=== PATIENT | female | born 1985 | race Caucasian/White ===

== ENCOUNTER → 2022-08-22 08:18 | Outpatient (CLI) | payer OTHER, SELFPAY ==
--- NOTE | ~2022-08-22 | US_ITS ---
EXAMINATION: US abdomen complete DATE: 08/22/2022 08:41 INDICATION: Abdominal pain. TECHNIQUE: Multiple grayscale and Doppler ultrasound images of the abdomen were obtained. COMPARISON: None FINDINGS: The visualized portions of the head and body of the pancreas are normal. The liver is abdias l without focal lesion. No liver surface nodularity. There is normal flow in main portal vein. The ga llbladder is normal in size and contains a large gallstone. No gallbladder wall thickening or sonogra phic Kc sign. The common duct is normal and measures 3 mm. The kidneys are normal in size. The sp juan is normal in size. The inferior vena cava is normal. Abdominal aorta is normal in caliber. IMPRESSION: 1. Cholelithiasis. No evidence of acute cholecystitis. Reviewed, dictated and finalized at location A. [employer]
== END ==
PROVIDERS: PCP Internal Medicine; Visit Provider Internal Medicine
DX: R10.9 Unspecified abdominal pain (principal); K80.20 Calculus of gallbladder without cholecystitis without obstruction
CPT/HCPCS: 76700

== ENCOUNTER 2022-10-07 08:08 | Outpatient (CLI) | payer OTHER, SELFPAY ==
[2022-10-07 09:12] LABS: Alanine Aminotransferase 16 U/L (6-35); Albumin Level 4.5 g/dL (3.5-5.1); Alkaline Phosphatase 58 U/L (38-126); Amylase 126 U/L (30-110); Aspartate Amino Transferase 22 U/L (14-36); Bilirubin,Total 0.4 mg/dL (0.2-1.3); Lipase 294 U/L (23-300)
== END 2022-10-07 08:09 | disposition home or self-care (01) ==
LOC: ANHSURGERY 08:13
PROVIDERS: PCP Internal Medicine; Visit Provider Surgery
DX: Z01.818 Encounter for other preprocedural examination (principal); K80.10 Calculus of gallbladder with chronic cholecystitis without obstruction
CPT/HCPCS: 36415; 80076; 82150; 83690; 86850; 86900; 86901

== ENCOUNTER 2022-10-10 00:26 | Day surgery (SDC) | payer OTHER, SELFPAY ==
--- NOTE | 2022-09-30 10:46 | SUR.PREOP ---
Report to the Outpatient Waiting Room, entrance under the green pavilion located off [facility], at time 0600 on date 10/10/22. Planned Procedure Time: 0730. Time changes happen often and if your time is changed the preop area will call you the afternoon before. - You and your visitor will be asked to self-screen and do not enter if you have any COVID symptoms. - Only one visitor is requested with a max of two and NO children visitors are allowed at this time. - The patient visitor may be requested to leave or wait in car when not with patient due to distancing restrictions. - A mask is optional within the hospital at this time. Patients may have clear liquids (water, carbonated beverages, clear teas, apple juice) until 3 hours prior to surgery with a maximum of 20 ounces. - NO CLEAR LIQUIDS AFTER 0430 - No food from midnight until time of surgery - Infants may have breast milk until 4 hours before surgery, formula 6 hours prior to surgery. - Children will be allowed to drink immediately following surgery. If applicable, please bring a bottle or sippy cup to assist with drinking. Juice, water, soda, and popsicles are readily available. For infants on formula, please bring formula the day of surgery. Pacifiers are allowed. Take the following medications with a SIP of water the morning of surgery: CLONAZEPAM DO NOT STOP ANY OF YOUR OTHER PRESCRIPTION MEDICATIONS PRIOR TO SURGERY ?EXCEPT THE FOLLOWING Medications to discontinue per physician N/A Date to take last dose N/A Please no make-up, nail dutch, hairspray, perfume, deodorant, or body powder the day of surgery. No jewelry (including any body piercings) or valuables the day of surgery, leave them at home. Please take a shower or bath the night before, or the morning of, surgery with HIBICLENS soap. Wear comfortable, loose fitting clothing. Children are encouraged to wear pajamas. - Jewelry must be removed prior to entering the operating room. Rings and piercings that are not removed may be cut off. - The hospital will not accept responsibility for valuables. - Please leave all valuables, including medications, at home the day of surgery. If you are going home after surgery, a licensed scoop driver must drive you home. - NO public transportation without another adult if you receive anesthesia. - We recommend that an adult stay with you for 24 hours following discharge. - We also recommend that you do not drive, make important decision, drink alcoholic beverages, or take any drugs that were not prescribed by your health care provider for at least 24 hours after your discharge time. For Pediatric surgeries, we recommend two adults accompany the child home. Follow any additional instructions given to you from your surgeon. If you or anyone in your household have experienced Covid symptoms in the past week, please notify your surgeon or the nurse liaison at the phone number below for possible testing. Telephone instructions given to TALI HESS and asked if any additional questions and then verbalized understanding. Patient advised to call surgeon office or pre surgery nurse liaison [phone] if any additional questions.
[2022-09-30 10:59] VITALS: BMI 25.1
[2022-10-10] VITALS (9 sets, daily range): BP systolic 122–135; BP diastolic 61–93; PULSE 54–95; RESP 12–20; TEMP 36.3–36.4; O2SAT 95–100
[2022-10-10] MEDS: ACETAMINOPHEN 500 MG TABLET 1000 MG PO (06:11)
[2022-10-10] MEDS: KETOROLAC 15 MG/ML VIAL (*BKC) IV PUSH ×2 (06:39→10:44)
--- NOTE | 2022-10-10 07:19 | WPDHPUPDATE1 ---
History and Physical Update Update Date/Time: 10/10/22 07:19 History and Physical has been reviewed, including an updated exam of the patient. There are NO changes in the patient's condition. Risks, benefits, and alternatives have been discussed and questions answered. Patient agrees to proceed with procedure.
--- NOTE | 2022-10-10 07:22 | WPDANESEPPF ---
Anes - Initial Pre Proc Eval Procedure: Operation Date: 10/10/22 07:30 Proposed Procedures p Laparoscopic Cholecystectomy - Lindsey Mathis MD Date/Time: 10/10/22 07:22 Surgeon: Lindsey Mathis MD Pre Op Diagnosis: Chronic Calculous Cholecystitis Patient Data Age: 37 Gender: F Height: 1.68 m Weight: 69.4 kg Last Vital Signs Temp 36.3 C L 10/10/22 06:43 Pulse 92 10/10/22 06:43 Resp 16 10/10/22 06:43 BP 131/93 H 10/10/22 06:43 Pulse Ox 100 10/10/22 06:43 O2 Del Method Room Air 10/10/22 06:43 Allergies Allergy/AdvReac Type Severity Reaction Status Date / Time morphine Allergy Intermediate Hives Verified 09/30/22 10:58 Home Medications Medication Instructions Recorded Confirmed Type clonazepam 0.5 mg tablet 0.5 mg PO TID 09/06/22 09/30/22 History dextroamphetamine sulfate 20 mg 20 mg PO DAILY 09/06/22 09/30/22 History tablet (Zenzedi) levomefolate calcium 15 mg tablet 15 mg PO DAILY 09/06/22 09/30/22 History (L-Methylfolate) vortioxetine 10 mg tablet 20 mg PO DAILY 09/06/22 09/30/22 History (Trintellix) omeprazole 40 mg capsule,delayed 40 mg PO DAILY #30 caps 09/10/22 09/30/22 Rx release dicyclomine 10 mg capsule 10 - 20 mg PO QID PRN Abdominal 09/30/22 09/30/22 History Discomfort Patient hx anesthesia problems: post op nausea/vomiting Family hx anesthesia problems: post op nausea/vomiting Results Review: All pre-operative results and documents have been reviewed as part of the pre-operative evaluation. [facility] Past Medical History Medical History Anxiety Bloating Cholelithiasis Depression Diarrhea Early satiety Marijuana dependence Nausea and vomiting Tobacco abuse Surgical History Surgical History History of surgery on arm S/P S/P D&C (status post dilation and curettage) Family History Family History Mother Hypertension Father Skin cancer AA (alcohol abuse) Unknown Diabetes mellitus Heart disease Acute myocardial infarction Hypertension Cancer Social History Social History Smoking packs per day: 0.5 Smoking cigarettes per day: 10.0 Years smoked: 15 Smoking pack-years: 7.50 Smoking status: Current every day smoker Tobacco type: cigarettes Alcohol intake: current Substance use: current Substance use type: marijuana Other substance usage details: MARIJUANA DAILY Living arrangements: with family Spiritual care concerns: No Anes - Eval Final PreProcedure Day of Procedure 10/10/22 07:22 Patient weight: normal Heart: regular rate and rhythm Lungs: clear to auscultation Airway: Mallampati scale class II Last oral intake: >/= 8 hours ASA classification: III Emergent: no Anesthetic plan: proceed Anesthesia type and monitoring: general ETT and standard monitoring Results Review: All pre-operative results and documents have been reviewed as part of the pre-operative evaluation. Informed Consent: The patient's anesthetic plan and its attendant risks and benefits were discussed with the patient/family/POA. Questions were solicited and answers provided to the satisfaction of the patient/family/POA.
[2022-10-10] MEDS: LACTATED RINGERS 1,000 ML 30 ML IV CONT ×2 (07:27→10:03)
[2022-10-10] MEDS: SCOPOLAMINE 1.5 MG PATCH TRANSDERM (07:27)
[2022-10-10] MEDS: ceFAZolin 2 GM/D5W 50 ML 2 GM/50 ML BAG IVPB (07:31)
[2022-10-10] MEDS: BUPIVACAINE/EPINEPHRINE 0.25% 50 ML VIAL 30 ML INFILTRATE (07:31)
--- NOTE | 2022-10-10 08:26 | P.OP_ITS ---
Procedure Note - Detailed Date of Procedure 10/10/22 Pre-op Diagnosis Chronic Calculous Cholecystitis Post-op Diagnosis Same Procedure Performed Laparoscopic cholecystectomy Surgeon Lindsey Mathis MD Anesthesia General Indications 37-year-old female presented to the office complaining of postprandial right up per quadrant abdominal pain associated with nausea and vomiting. Workup including imaging significant for cholecystitis, cholelithiasis. Findings Cholecystitis with cholelithiasis Description of Procedure The patient was taken to the operating room placed in the supine position. After adequate induction of general anesthesia, the patient was prepped and draped in normal sterile fashion. A time-out was then performed to verify the patient's identity as well as the procedure being performed. I then made a 5 mm incision in the infraumbilical region. Through this, a Veress needle was placed into the peritoneal cavity and CO2 gas was then insufflated. After adequate pneumoperitoneum was achieved, the Veress needle was removed and a 5 mm optiview trocar was placed through this incision under direct visualization. I then placed the laparoscope through this trocar site and under direct visualization placed a further 12 mm subxiphoid port as well as 2 additional 5 mm ports in the right upper abdomen. The gallbladder was then identified and was noted to be moderately inflamed, distended, and full of gallstones. I was able to place a grasper at the dome of the gallbladder and this was retracted anterior and cephalad up over the liver. A 2nd retractor was then placed at the infundibulum and retracted laterally, this allowed visualization of the triangle of Calot. I then was able to visualize the cystic duct in its entirety from its proximal insertion into the gallbladder, to its distal junction with the common hepatic/common bile duct junction. At this point, I carefully skeletonized the proximal cystic duct with the [place] dissector. I then clipped and transected the proximal cystic duct. Next I visualized the cystic artery. Again the artery was skeletonized, clipped, and transected. I then used the Bovie cautery to take down the peritoneal attachments of the gallbladder off the liver bed. Once the gallbladder specimen was completely detached, an endo-pouch was placed through the 12 mm port site. I then placed the gallbladder specimen into the Endo pouch and removed the endo-pouch from the 12 mm port site. The specimen will now be sent to pathology for further review. I then copiously irrigated the right upper quadrant. Some mild oozing was noted in the liver bed and this was controlled with the bovie cautery. Hemostasis was noted in the liver bed, the clips were noted to be in good position on both the cystic duct stump and the cystic artery stump. No other pathology was noted in the right upper quadrant. I then moved the laparoscope to the subxiphoid port. No iatrogenic injury or other pathology was noted in the lower abdomen. I then closed the 12 mm trocar site under direct visualization using the Weston cone and 0 Vicryl suture. At this point, the abdomen was desufflated and all ports removed. All port sites were then closed with 4.O Monocryl subcuticular sutures. Dermabond was placed on each incision. The patient tolerated the procedure well, was extubated in the operating room postoperative and will be transferred to the recovery room in stable condition Estimated Blood Loss 10 Drains No Packing No Pathology Yes Complications No immediate complications Condition Stable Disposition PACU [facility] Billing Surgery - Charge Forward: Surgery Billing
[2022-10-10] MEDS: fentaNYL CITRATE INJ (*CRX) 100 MCG/2 ML VIAL 25 MCG IV PUSH ×4 (09:10→10:10)
[2022-10-10] MEDS: oxyCODONE HCL (*CRX) 5 MG TAB IR PO (09:41)
[2022-10-10] MEDS: ONDANSETRON INJ 4 MG/2 ML VIAL IV PUSH (10:04)
== END 2022-10-10 11:17 | disposition home or self-care (01) ==
PROVIDERS: PCP Internal Medicine; Visit Provider Surgery
PROC: 0FT44ZZ Resection of Gallbladder, Percutaneous Endoscopic Approach (ICD-10-PCS; CPT 47562; principal; 2022-10-10 07:30)
DX: K80.10 Calculus of gallbladder with chronic cholecystitis without obstruction (principal); F41.9 Anxiety disorder, unspecified; F32.A Depression, unspecified; F17.210 Nicotine dependence, cigarettes, uncomplicated; F12.20 Cannabis dependence, uncomplicated
CPT/HCPCS: 47562; 36415; 80076; 82150; 83690; 86850; 86900; 86901; 88304; A9270; J0690; J1100; J1885; J2001; J2250; J2405; J2704; J3010; J7120

== ENCOUNTER 2022-11-11 08:13 | Outpatient (NON) | payer OTHER, SELFPAY | END 2022-11-11 08:14 | disposition home or self-care (01) | LOC: ANHLAB 11-12 08:15 | PROVIDERS: PCP Internal Medicine; Visit Provider Internal Medicine Gastroenterology | DX: R14.0 Abdominal distension (gaseous) (principal) | CPT/HCPCS: 88305 ==

== ENCOUNTER 2022-11-11 08:22 | Day surgery (SDC) | payer OTHER, SELFPAY ==
[2022-09-24 09:05] VITALS: BMI 24.8
[2022-10-30 08:50] VITALS: BMI 24.9
[2022-11-11 09:15] VITALS: BP 119/77; PULSE 73; RESP 20; TEMP 37.3; O2SAT 99
--- NOTE | 2022-11-11 09:35 | WPDANESEPPF ---
Anes - Initial Pre Proc Eval Procedure: Operation Date: 11/11/22 10:30 Proposed Procedures p Esophagogastroduodenoscopy - John Oconnor MD s Diagnostic Colonoscopy - John Oconnor MD Date/Time: 11/11/22 09:35 Surgeon: John Oconnor MD Pre Op Diagnosis: Nausea, Vomitting, Abdominal, Pain Diarrhea Patient Data Age: 37 Gender: F Height: 1.68 m Weight: 70 kg Allergies Allergy/AdvReac Type Severity Reaction Status Date / Time morphine Allergy Intermediate Hives Verified 10/23/22 09:26 Home Medications Medication Instructions Recorded Confirmed Type clonazepam 0.5 mg tablet 0.5 mg PO TID 09/06/22 10/29/22 History dextroamphetamine sulfate 20 mg 20 mg PO DAILY 09/06/22 10/29/22 History tablet (Zenzedi) levomefolate calcium 15 mg tablet 15 mg PO DAILY 09/06/22 10/29/22 History (L-Methylfolate) vortioxetine 10 mg tablet 20 mg PO DAILY 09/06/22 10/29/22 History (Trintellix) omeprazole 40 mg capsule,delayed 40 mg PO DAILY #30 caps 09/10/22 10/29/22 Rx release dicyclomine 10 mg capsule 10 - 20 mg PO QID PRN Abdominal 09/30/22 10/29/22 History Discomfort Patient hx anesthesia problems: none Family hx anesthesia problems: none Results Review: All pre-operative results and documents have been reviewed as part of the pre-operative evaluation. [facility] Past Medical History Medical History Anxiety Bloating Cholelithiasis Depression Diarrhea Early satiety Marijuana dependence Nausea and vomiting Tobacco abuse Surgical History Surgical History History of surgery on arm S/P S/P cholecystectomy Laparoscopic cholecystectomy 10/10/22 S/P D&C (status post dilation and curettage) Family History Family History Mother Hypertension Father Skin cancer AA (alcohol abuse) Unknown Diabetes mellitus Heart disease Acute myocardial infarction Hypertension Cancer Social History Social History Smoking packs per day: 0.5 Smoking cigarettes per day: 10.0 Years smoked: 15 Smoking pack-years: 7.50 Smoking status: Current every day smoker Tobacco type: cigarettes Alcohol intake: current Substance use: current Substance use type: marijuana Other substance usage details: MARIJUANA DAILY Living arrangements: with family Spiritual care concerns: No Anes - Eval Final PreProcedure Day of Procedure 11/11/22 09:35 Patient weight: normal Heart: regular rate and rhythm Lungs: clear to auscultation Airway: Mallampati scale class II Neurological: alert and oriented Last oral intake: >/= 8 hours ASA classification: III Emergent: no Anesthetic plan: proceed Anesthesia type and monitoring: general GIVS and standard monitoring Results Review: All pre-operative results and documents have been reviewed as part of the pre-operative evaluation. Informed Consent: The patient's anesthetic plan and its attendant risks and benefits were discussed with the patient/family/POA. Questions were solicited and answers provided to the satisfaction of the patient/family/POA.
[2022-11-11] MEDS: LACTATED RINGERS 1,000 ML 150 ML IV CONT (09:41)
--- NOTE | 2022-11-11 09:52 | PM.HPGS ---
History of Present Illness History of Present Illness Consent: Risks, benefits, and alternatives have been discussed and questions answered. Patient agrees to proceed with procedure. Chief complaint: Nausea, Vomitting, Abdominal, Pain Diarrhea Narrative: Madeleine Pena is a 37 year old female with intermittent bloating, discomfort followed by loose stools normally after eating more than usual, some mornings also hiccups with nausea. This has been going on for 4-5 years, never had scopes. Review of Systems Constitutional: Constitutional: Denies headache(s) and Denies weakness Eyes: Eyes: Denies blurry vision ENT: Reports Normal hearing present, Denies headache(s) and Denies neck pain Cardiovascular: Cardiovascular: Denies chest pain and Denies dyspnea Respiratory: Respiratory: Denies dyspnea Gastrointestinal: Gastrointestinal: Reports no additional gastrointestinal complaints Genitourinary: Genitourinary: Denies dysuria Musculoskeletal: Musculoskeletal: Denies neck pain Integumentary/Breasts: Skin/Breast: Denies dry skin Neurologic: Reports Normal hearing present, Denies headache(s) and Denies weakness Psychiatric: Psychiatric: Denies anxiety Endocrine: Endocrine: Denies change in body appearance Hematologic/Lymphatic: Hematologic/Lymphatic: Denies easy bleeding Allergic/Immunologic: Allergic/Immunologic: Denies urticaria PMFSH Past Medical History Medical History Anxiety Bloating Cholelithiasis Depression Diarrhea Early satiety Marijuana dependence Nausea and vomiting Tobacco abuse Surgical History Surgical History History of surgery on arm S/P S/P cholecystectomy Laparoscopic cholecystectomy 10/10/22 S/P D&C (status post dilation and curettage) Family History Family History Mother Hypertension Father Skin cancer AA (alcohol abuse) Unknown Diabetes mellitus Heart disease Acute myocardial infarction Hypertension Cancer Social History Social History Smoking packs per day: 0.5 Smoking cigarettes per day: 10.0 Years smoked: 15 Smoking pack-years: 7.50 Smoking status: Current every day smoker Tobacco type: cigarettes Alcohol intake: current Substance use: current Substance use type: marijuana Other substance usage details: MARIJUANA DAILY Living arrangements: with family Spiritual care concerns: No Meds Home Medications and Allergies Home Medications Medication Instructions Recorded Confirmed Type clonazepam 0.5 mg tablet 0.5 mg PO TID 09/06/22 11/11/22 History dextroamphetamine sulfate 20 mg 20 mg PO DAILY 09/06/22 11/11/22 History tablet (Zenzedi) levomefolate calcium 15 mg tablet 15 mg PO DAILY 09/06/22 10/29/22 History (L-Methylfolate) vortioxetine 10 mg tablet 20 mg PO DAILY 09/06/22 10/29/22 History (Trintellix) omeprazole 40 mg capsule,delayed 40 mg PO DAILY #30 caps 09/10/22 10/29/22 Rx release dicyclomine 10 mg capsule 10 - 20 mg PO QID PRN Abdominal 09/30/22 10/29/22 History Discomfort Allergies Allergy/AdvReac Type Severity Reaction Status Date / Time morphine Allergy Intermediate Hives Verified 11/11/22 09:36 Vital Signs Vital Signs - 24 hr 11/11/22 09:15 Temperature 99.2 F Pulse Rate 73 Respiratory Rate 20 Blood Pressure 119/77 Pulse Oximetry 99 Oxygen Delivery Room Air Exam Const: General: comfortable and no acute distress HENMT: Face/Nose/Sinus: Normal nares present Eyes: General: appearance normal, both eyes and all related structures Neck: Neck: no JVD Resp: Auscultation: clear to auscultation bilaterally Cardio: Rate: regular rate Rhythm: regular rhythm GI: Inspection: non-distended GI Palp: Yes Soft to palpation Skin: General skin exam: abdias
[2022-11-11 10:21] VITALS: BP 108/68; PULSE 65; RESP 14; O2SAT 100
[2022-11-11 10:31] VITALS: BP 118/73; PULSE 71; RESP 16; O2SAT 100
--- NOTE | 2022-11-11 10:36 | WPDANESPN ---
Anes - Prog Note Post-Op Date/Time: 11/11/22 10:36 Cardiovascular status: normal Respiratory status: normal Airway patency: baseline Mental status: baseline Post-Op hydration status: normal Vital Signs: Last Vital Signs Temp 37.3 C 11/11/22 09:15 Pulse 65 11/11/22 10:21 Resp 14 11/11/22 10:21 BP 108/68 11/11/22 10:21 Pulse Ox 100 11/11/22 10:21 O2 Del Method Room Air 11/11/22 10:21 Pain Score (VAS): 0/10 I/O: Intake & Output 11/10/22 11/11/22 11/11/22 23:59 07:59 15:59 Intake Total 600 Balance 600 Patient Feedback: Patient satisfied with anesthetic care.
[2022-11-11 10:41] VITALS: BP 125/91; PULSE 76; RESP 16; O2SAT 100
--- NOTE | 2022-11-11 10:41 | SUR.PHASEII ---
PT AWAKE AND ALERT. EATING AND DRINKING. DENIES PAIN OR NAUSEA. USING CELL PHONE
--- NOTE | 2022-11-11 10:54 | WPDANESPN ---
Anes - Prog Note Post-Op Date/Time: 11/11/22 10:54 Cardiovascular status: normal Respiratory status: normal Airway patency: baseline Mental status: baseline Post-Op hydration status: normal Vital Signs: Last Vital Signs Temp 37.3 C 11/11/22 09:15 Pulse 71 11/11/22 10:31 Resp 16 11/11/22 10:31 BP 118/73 11/11/22 10:31 Pulse Ox 100 11/11/22 10:31 O2 Del Method Room Air 11/11/22 10:31 Pain Score (VAS): 0/10 I/O: Intake & Output 11/10/22 11/11/22 11/11/22 23:59 07:59 15:59 Intake Total 700 Balance 700 Patient Feedback: Patient satisfied with anesthetic care.
== END 2022-11-11 11:00 | disposition home or self-care (01) ==
PROVIDERS: PCP Internal Medicine; Visit Provider Internal Medicine Gastroenterology
PROC: 0DJ08ZZ Inspection of Upper Intestinal Tract, Via Natural or Artificial Opening Endoscopic (ICD-10-PCS; CPT 43235; principal; 2022-11-11 10:30)
PROC: 0DJD8ZZ Inspection of Lower Intestinal Tract, Via Natural or Artificial Opening Endoscopic (ICD-10-PCS; CPT 45378; 2022-11-11 10:30)
DX: R14.0 Abdominal distension (gaseous) (principal)
CPT/HCPCS: 45378; 43239